=== PATIENT | male | born 1985 | race Caucasian/White ===

== ENCOUNTER 2018-11-01 06:17 | Emergency (ER) | payer BC, SELFPAY ==
[2018-11-01 06:26] VITALS: BP 151/108; PULSE 88; RESP 18; TEMP 36.9; O2SAT 96; BMI 50.1
--- NOTE | 2018-11-01 06:48 | ED_ITS ---
HPI - Back Pain/Injury General Chief Complaint: Back Pain/Injury Stated Complaint: Back Pain Time Seen by Provider: 11/01/18 06:31 Source: patient Mode of arrival: ambulatory Limitations: no limitations History of Present Illness HPI Narrative: 33-year-old male nonsmoker with history of back pain presents with a chief complaint of right lower back pain since moving a heavy refrigerator few days ago. He denies any specific trauma or direct injury to the bony spine of his back. He denies any numbness, weakness or tingling. He denies any saddle anesthesia, foot drop or trouble controlling bowel or bladder. He denies any fever or chills. His pain is worse with motion and improves with rest. MD Complaint: back pain Onset (ago): day(s) Duration: constant Similar Symptoms Previously: Yes Location: lumbar spine Severity: moderate Quality: sharp and stabbing Radiation: none Relieving factors: immobilization Exacerbating factors: movement Context: while lifting and turning/twisting Associated symptoms: denies other symptoms Treatments prior to arrival: heat therapy and NSAIDS Related Data Home Medications Medication Instructions Recorded Confirmed ibuprofen 600 mg PO PRN #0 04/17/12 Previous Rx's Medication Instructions Recorded diazepam [Valium] 10 mg PO HS #7 tab 04/04/17 hydrocodone-acetaminophen 0 tab PO Q6HP PRN #15 tab 08/13/17 ondansetron [Zofran ODT] 4 mg SUBLINGUAL Q6HP PRN #20 odt 08/13/17 diazepam [Valium] 5 mg PO BID-QID PRN #10 tab 11/01/18 hydrocodone-acetaminophen 1 tab PO Q4-6H PRN #10 tab 11/01/18 ketorolac 10 mg PO Q6H PRN #14 tab 11/01/18 Allergies Allergy/AdvReac Type Severity Reaction Status Date / Time codeine Allergy Mild RED FACE Unverified 10/13/17 12:20 Review of Systems Constitutional Denies chills, Denies fever(s), Denies lethargy and Denies weakness Eyes Denies change in vision, Denies eye discharge, Denies irritation and Denies loss of vision ENT Ears, Nose, Mouth, and Throat: Denies change in voice, Denies neck pain and Denies sore throat Cardiovascular Denies chest pain, Denies irregular heart rhythm, Denies lightheadedness, Denies palpitations, Denies dyspnea, Denies dyspnea on exertion and Denies orthopnea Respiratory Denies cough, Denies dyspnea, Denies dyspnea on exertion and Denies wheezing Gastrointestinal Gastrointestinal: Denies abdominal pain, Denies change in bowel habits, Denies diarrhea, Denies nausea and Denies vomiting Genitourinary Denies hematuria, Denies flank pain, Denies urinary incontinence and Denies urinary urgency Musculoskeletal Reports abnormal gait, Reports back pain and Denies neck pain Integumentary/Breasts Denies pruritus, Denies erythema, Denies rash and Denies wounds Neurologic Reports abnormal gait, Denies confusion, Denies loss of vision and Denies weakness Psychiatric Denies anxiety, Denies confusion, Denies depression, Denies homicidal ideation and Denies suicidal ideation Endocrine Denies palpitations Hematologic/Lymphatic Denies easy bruising Allergic/Immunologic Denies wheezing [facility] Social History Smoking Status: Never smoker Social History Smoking Status: Never smoker Exam Narrative Exam Narrative: GENERAL: 33-year-old male, obviously uncomfortable, rubbing his lower back. HEAD: Atraumatic. Normocephalic. No temporal or scalp tenderness. EYES: Pupils equal round and reactive. Extraocular motions intact. No scleral icterus. No injection or drainage. ENT: Nose without bleeding, purulent drainage or septal hematoma. Throat without erythema, tonsillar hypertrophy or exudate. Uvula midline. Airway patent. NECK: Trachea midline. No JVD or lymphadenopathy. Supple, nontender, no meningeal signs. CARDIOVASCULAR: Regular rate and rhythm without murmurs, gallops, or rubs. RESPIRATORY: Clear to auscultation. Breath sounds equal bilaterally. No wheezes, rales, or rhonchi. GASTROINTESTINAL: Abdomen soft, non-tender, nondistended. No hepato- splenomegaly, or palpable masses. No guarding. EXTREMITIES: No clubbing, cyanosis, or edema. No joint tenderness, effusion, or edema noted. 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 Patient exam notes decreased range of motion and muscle spasm, but no CVA tenderness, or vertebral point tenderness. There are no symptoms of cauda equina such as saddle anesthesia, and decreased reflexes, decreased sensation or strength. He NEURO: AOx3. SKIN: No rash or erythema. Initial Vital Signs Initial Vital Signs: Vital Signs Temperature 98.4 F 11/01/18 06:26 Pulse Rate 88 11/01/18 06:26 Respiratory Rate 18 11/01/18 06:26 Blood Pressure 151/108 H 11/01/18 06:26 Pulse Oximetry 96 11/01/18 06:26 Course Orders Ordered: Discontinued Medications Diazepam (Valium) 5 mg PO NOW ONE Stop: 11/01/18 06:40 Last Admin: 11/01/18 06:51 Dose: 5 mg Ketorolac Tromethamine (Toradol) 60 mg IM NOW ONE Stop: 11/01/18 06:40 Last Admin: 11/01/18 06:51 Dose: 60 mg Vital Signs - 8 hr 11/01/18 06:26 Temperature 98.4 F Pulse Rate 88 Respiratory Rate 18 Blood Pressure 151/108 H Pulse Oximetry 96 MDM - Back Pain/Injury MDM Narrative Medical decision making narrative: Multiple etiologies of back pain considered including; Epidural abscess, cauda equina, mass occupying lesion, and other considered Discharge Plan Departure Patient Disposition: Home Clinical Impression: Strain of lumbar region Qualifiers: Encounter type: initial encounter Qualified Code(s): S39.012A - Strain of muscle, fascia and tendon of lower back, initial encounter Discharge Date/Time: 11/01/18 08:18 Interventions: ED Discharge Assessment Last Done: 11/01/18 08:17 Instructions: DI for Back Spasm, DI for Back Strain or Sprain Activity Restrictions/Additional Instructions: *You have been diagnosed with [ acute lumbar spasm ] *What to do: *Take medications as directed *Follow up with your primary care provider in 2-3 days, call for an appointment. Let them know you were seen in the Emergency Department and that we ask that you be seen in follow up *Return to ER if you should have any new, worsening or concerning symptoms You have been prescribed narcotic medications. While on these medications you cannot drive or operate heavy machinery. Additionally you cannot sign legal documents or perform any duties such as this. Many people get constipated on narcotic medications so it would be advisable to discuss stool softeners with the pharmacist when you pickle processor your prescription. Please understand that we cannot provide further refills of narcotics or controlled substances through the ED and your pain management will need to be through your Primary Care Provider Prescriptions: New hydrocodone-acetaminophen 5-325 mg tablet 1 tab PO Q4-6H PRN (Reason: pain) Qty: 10 RF: 0 ketorolac 10 mg tablet 10 mg PO Q6H PRN (Reason: pain) Qty: 14 RF: 0 diazepam [Valium] 5 mg tablet 5 mg PO BID-QID PRN (Reason: muscle spasm) Qty: 10 RF: 0 No Action ibuprofen 600 MG tablet 600 mg PO PRN Qty: 0 RF: 0 diazepam [Valium] 10 MG tablet 10 mg PO HS Qty: 7 RF: 0 hydrocodone-acetaminophen 5 MG/325 MG tablet PO Q6HP PRNQty: 15 RF: 0 ondansetron [Zofran ODT] 4 MG tablet,disintegrating 4 mg Sublingual Q6HP PRNQty: 20 RF: 0 Stand Alone Forms: Work Release Note
[2018-11-01] MEDS: KETOROLAC 60 MG/2 ML VIAL IM (06:51)
[2018-11-01] MEDS: diazePAM 5 MG TABLET PO (06:51)
--- NOTE | 2018-11-01 07:17 | PC.NURSE ---
obtained patient care. Patient resting, reports minimal to no change in pain. Provided call light and water. Repositioned patient
[2018-11-01 08:17] VITALS: BP 138/89; PULSE 72; O2SAT 99
== END 2018-11-01 08:18 | disposition home or self-care (01) ==
PROVIDERS: Emergency Provider Emergency Medicine
DX: S39.012A Strain of muscle, fascia and tendon of lower back, initial encounter (principal)
CPT/HCPCS: 96372; 99282; 99283; J1885

== ENCOUNTER → 2018-11-09 13:37 | Outpatient (CLI) | payer BC, SELFPAY ==
--- NOTE | 2018-11-09 13:39 | DI.US.S_ITS ---
PROCEDURE: US SCROTUM INDICATIONS: TESTICULAR PAIN TECHNIQUE: Real-time scanning was performed of the scrotum and testicles, with image documentation. Color and pulse Doppler interrogation was performed of both testicles. COMPARISON: None. FINDINGS: Right: Testicle measures 5.4 x 2.7 x 2.9 cm and appears homogenous in echotexture. Epididymis is normal in overall size and morphology. No hydrocele or varicoceles. Overlying scrotal skin is normal in thickness. Left: Testicle measures 5.4 x 2.7 x 2.9 cm, and appears homogeneous in echotexture. Epididymis is normal in overall size and morphology. No hydrocele or varicoceles. Overlying scrotal skin is normal in thickness. Doppler: Color and pulse Doppler demonstrate normal and symmetric arterial flow in both testicles. IMPRESSION: 1. Normal study without evidence of testicular torsion. Dictated by: Gerald Claire M.D. on 11/09/2018 at 16:48 Approved by: Gerald Claire M.D. on 11/09/2018 at 16:54
== END ==
PROVIDERS: Visit Provider Physician Assistant
DX: N50.819 Testicular pain, unspecified (principal)
CPT/HCPCS: 76870

== ENCOUNTER → 2018-11-15 16:21 | Outpatient (CLI) | payer BC, SELFPAY ==
[2018-11-15 16:27] LABS: Bacteria Urine None Seen
[2018-11-15 16:34] LABS: Appearance Urine UA CLEAR; Bilirubin Urine UA NEGATIVE (NEGATIVE); Color Urine UA YELLOW; Glucose Urine UA NEGATIVE (Negative); Ketones Urine UA NEGATIVE (NEGATIVE); Leukocyte Esterase Urine UA NEGATIVE (NEGATIVE); Nitrite Urine UA NEGATIVE (Negative); Occult Blood Urine UA TRACE-LYSED (Negative); Protein Urine UA NEGATIVE (Negative); Specific Gravity Urine UA 1.025 (1.000-1.035); Urobilinogen Urine UA 0.2 E.U./dL (0.2)
[2018-11-15 16:45] LABS: RBC Urine 1-5/HPF (0-5/HPF); WBC Urine 0-1/HPF (0-5/HPF)
[2018-11-15 16:46] LABS: Granular Casts Urine 5-10/LPF; Squamous Epithelial Cell Urine 0-1 /HPF (0-5/HPF)
[2018-11-15 16:47] LABS: Culture Indicated Urine Cult Not Indicated; Mucus Urine 2+ (Negative)
[2018-11-15 18:04] LABS: Urine N gonorrhoeae NOT DETECTED
[2018-11-15 18:05] LABS: Urine Chlamydia NOT DETECTED
== END ==
PROVIDERS: Visit Provider Physician Assistant
DX: N50.819 Testicular pain, unspecified (principal)
CPT/HCPCS: 81001; 87491; 87591

== ENCOUNTER 2019-04-01 17:25 | Emergency (ER) | payer BC, SELFPAY ==
[2019-04-01 17:30] VITALS: BP 148/96; PULSE 89; RESP 18; TEMP 36.2; O2SAT 96
--- NOTE | 2019-04-01 17:38 | PC.NURSE ---
Pt is not taking lisinopril, states he is having difficulty finding time to go to provider. Discussed htn as well as effects of untreated htn. encouraged to f/u w/ his PCP to start taking meds again. Reviewed s/s to return to ED re: htn crisis w/ verbalized understanding.
[2019-04-01 18:33] VITALS: BP 149/88; PULSE 70; RESP 18; O2SAT 99
--- NOTE | 2019-04-02 02:03 | ED_ITS ---
HPI - Skin/Abscess/Foreign Bdy <GAUDENCIO Jeffrey - Last Filed: 04/02/19 02:18> General Chief complaint: Skin/Abscess/Foreign Body Stated complaint: burn left forearm, thinks becoming infected Time Seen by Provider: 04/01/19 18:00 Source: patient Mode of arrival: Ambulatory Limitations: no limitations History of Present Illness HPI narrative: This is a pleasant 33-year-old gentleman, uses chewing tobacco, who presents to ED alone with chief complaint of left medial lower arm burn and possible skin infection. Patient reports he had burn on affected side on a hot pipe 2 days ago. He has been managing wound care with Neosporin on and off after initially using burn cream. He denies fever, chills, nausea, vomiting or drainage from the site. He is concerned and decided to come in to ED for an evaluation because noticed increasing redness, swelling, pain surrounding burn site. Patient reports his tetanus immunization is up-to-date. Related Data Previous Rx's Medication Instructions Recorded lisinopril 5 mg tablet 5 mg PO DAILY #30 tab 11/17/18 cephalexin [Keflex] 500 mg PO Q6H 7 Days #28 cap 04/01/19 Allergies Allergy/AdvReac Type Severity Reaction Status Date / Time codeine Allergy Mild RED FACE Verified 04/01/19 17:34 Review of Systems <GAUDENCIO Jeffrey - Last Filed: 04/02/19 02:18> Review of Systems ROS Unobtainable: All systems reviewed & are unremarkable except as noted in HPI and below PFSH <GAUDENCIO Jeffrey - Last Filed: 04/02/19 02:18> Surgical History No pertinent past surgical history (Acute) Family History Mother Depression Social History Smoking Status: Former smoker Family History Mother Depression Social History (Updated 04/02/19 @ 02:06 by GAUDENCIO Jeffrey) Smoking Status: Former smoker Smokeless tobacco user: chewing tobacco Exam <Gigi DiazASCENCION boyerP - Last Filed: 04/02/19 02:18> Narrative Exam Narrative: General appearance: well developed, well nourished, in no acute distress. Head: normocephalic, atraumatic, no scalp lesions, non-tender. Eye: pupil equal, round. EOMI. Nose: nares patent. Oral: mucosa moist. Neck/Thyroid: neck supple, full range of motion, no visible masses. Heart: no clubbing, no cyanosis, no edema. Lungs: Breathing even and unlabored. No stridor. No accessory muscles used. Chest: normal shape and expansion. Abdomen: non-obese, non-distended. Neurologic: alert and oriented. Cognitive exam, [employer] SERVICE [employer] IN [employer] and PNS grossly intact on informal exam. Psych: good eye contact, normal affect. Initial Vital Signs Initial Vital Signs: Vital Signs Temperature 97.2 F L 04/01/19 17:30 Pulse Rate 89 04/01/19 17:30 Respiratory Rate 18 04/01/19 17:30 Blood Pressure 148/96 H 04/01/19 17:30 Pulse Oximetry 96 04/01/19 17:30 Skin Other: Superficial partial thickness burn to medial left forearm approx. 1.5 x 2-3 cm with mild erythema and edema, mild warmth on surrounding tissue. There is no drainage noted. Affected mart side appears to be dried with this serous fluid and light yellow in color. <Hien Erickson DO - Last Filed: 04/02/19 08:46> Initial Vital Signs Initial Vital Signs: Vital Signs Temperature 97.2 F L 04/01/19 17:30 Pulse Rate 89 04/01/19 17:30 Respiratory Rate 18 04/01/19 17:30 Blood Pressure 148/96 H 04/01/19 17:30 Pulse Oximetry 96 04/01/19 17:30 Scores <Gigi CoatesCarmenGAUDENCIO boyer - Last Filed: 04/02/19 02:18> GCS [place] coma scale eye opening: Spontaneous Gabriela coma scale verbal response: Orientated Gabriela coma scale motor response: Obey commands [place] coma scale total score: 15 Course <Gigi CoatesASCENCION TaylorP - Last Filed: 04/02/19 02:18> Vital Signs Vital signs: Vital Signs - 8 hr 04/01/19 18:33 Pulse Rate 70 Respiratory Rate 18 Blood Pressure [Left Arm] 149/88 H Pulse Oximetry 99 <Hien Erickson DO - Last Filed: 04/02/19 08:46> Vital Signs Vital signs: Vital Signs - 8 hr 04/01/19 18:33 Pulse Rate 70 Respiratory Rate 18 Blood Pressure [Left Arm] 149/88 H Pulse Oximetry 99 MDM - Skin/Abscess/Foreign Bdy <ASCENCION JeffreyP - Last Filed: 04/02/19 02:18> Differential Diagnosis Differential diagnosis: Likely cellulitis (Superficial partial-thickness burn on left lower arm) Medical Records Attestation: I reviewed the patient's medical records. [facility] Narrative Medical decision making narrative: This is a 33-year-old gentleman who came in to ED for an evaluation for superficial partial-thickness burn on his left lower arm which he sustained from a hot pipe 2 days ago with increasing redness, warmth, swelling in surrounding skin. Patient denies constitutional symptoms. Surrounding wound was marked with skin marker for re-evaluation. Physical exam consistent with mild cellulitis and he was treated with Keflex 500 mg q.i.d. for 7 day course. Return precautions were discussed with the patient and advised to follow up with his primary care physician next week. Patient advised to keep the wound clean and dry and covered with Neosporin and dressing. Patient verbalized understanding and agrees with treatment plan. Patient advised to take [id number] Tylenol or Motrin as needed for discomfort. Patient reports his tetanus immunization is up-to-date and the nose has not updated today. Discharge Plan Departure Patient Disposition: Home Clinical Impression: Cellulitis of left forearm Discharge Date/Time: 04/01/19 18:33 Activity Restrictions/Additional Instructions: You have been diagnosed with [mild cellulitis on burned site of year left forearm]. What to do: *Take your medications as directed. Please start taking Keflex today and for next 7 days. If you're wound clean and dry and dressed with antibiotic ointment and Band-Aid. Please do not soak the wound in water until it heals. *Follow up with your primary care provider in 2-3 days, call for an appointment. Let them know you were seen in the ED and that we asked you to be seen in follow up. *Return to ED if you have any new, worsening, or concerning symptoms, such as [increasing redness, swelling, pain, warmth, purulent discharge, unable to tolerate fluids, chest pain or breathing difficulty]. Prescriptions: New cephalexin [Keflex] 500 mg capsule 500 mg PO Q6H 7 Days Qty: 28 RF: 0 No Action lisinopril 5 mg tablet 5 mg PO DAILY Qty: 30 RF: 0 Referrals: [facility] [Outside] (Walk in clinic ) [facility] [Outside]
== END 2019-04-01 18:33 | disposition home or self-care (01) ==
PROVIDERS: Emergency Provider Nurse Practitioner Family
DX: L03.114 Cellulitis of left upper limb (principal)
CPT/HCPCS: 99282; 99283

== ENCOUNTER → 2019-05-10 17:33 | Outpatient (CLI) | payer BC, SELFPAY ==
[2019-05-10 18:27] LABS: Alanine Aminotransferase 149 IU/L (<50); Albumin 5.4 g/dL (3.5-5.0); Albumin Globulin Ratio 1.7 (1.0-2.8); Alkaline Phosphatase 76 U/L (38-126); Aspartate Aminotransferase 64 IU/L (17-59); Bilirubin Total 0.6 mg/dL (0.2-1.3); Blood Urea Nitrogen 12 mg/dL (9-20); Calcium 10.4 mg/dL (8.4-10.2); Carbon Dioxide 25 mmol/L (22-32); Chloride 99 mmol/L (98-107); Cholesterol 254 mg/dL (140-199); Estimated Glomerular Filt Rate > 60.0 mL/min (>60); Globulin 3.1 g/dL (1.7-4.1); Glucose 90 mg/dL (70-100); HDL Cholesterol 32 mg/dL (40-60); HEMOLYSIS 20 (0-50); LDL Cholesterol Calculated 155 mg/dL (<100); Potassium 4.1 mmol/L (3.4-5.1); Sodium 137 mmol/L (137-145); Total Protein 8.5 g/dL (6.3-8.2); Triglycerides 335 mg/dL (35-150)
== END ==
PROVIDERS: Visit Provider Hospitalist
DX: I10 Essential (primary) hypertension (principal)
CPT/HCPCS: 36415; 80053; 80061

== ENCOUNTER → 2019-06-19 17:27 | Outpatient (CLI) | payer BC, SELFPAY ==
[2019-06-19 19:00] LABS: Creatinine Urine Random 69.1 mg/dL
[2019-06-19 19:01] LABS: Alanine Aminotransferase 73 IU/L (<50); Albumin 5.2 g/dL (3.5-5.0); Albumin Globulin Ratio 1.6 (1.0-2.8); Alkaline Phosphatase 75 U/L (38-126); Aspartate Aminotransferase 41 IU/L (17-59); Bilirubin Total 0.6 mg/dL (0.2-1.3); Blood Urea Nitrogen 16 mg/dL (9-20); Calcium 10.2 mg/dL (8.4-10.2); Carbon Dioxide 27 mmol/L (22-32); Chloride 97 mmol/L (98-107); Cholesterol 226 mg/dL (140-199); Estimated Glomerular Filt Rate > 60.0 mL/min (>60); Globulin 3.2 g/dL (1.7-4.1); Glucose 86 mg/dL (70-100); HDL Cholesterol 26 mg/dL (40-60); HEMOLYSIS < 15 (0-50); Potassium 4.1 mmol/L (3.4-5.1); Sodium 138 mmol/L (137-145); Total Protein 8.4 g/dL (6.3-8.2); Triglycerides 444 mg/dL (35-150)
[2019-06-19 19:06] LABS: Microalbumi Creatinin Ratio Ur 8.6 ug/mg CR (<30); Microalbumin Urine Random < 0.6 mg/dL (0-1.6)
== END ==
PROVIDERS: Family Provider Family Medicine; PCP Family Medicine; Visit Provider Nurse Practitioner Family
DX: E78.2 Mixed hyperlipidemia (principal); I10 Essential (primary) hypertension; R74.8 Abnormal levels of other serum enzymes
CPT/HCPCS: 36415; 80053; 80061; 82043; 82570

== ENCOUNTER 2024-01-14 11:21 | Emergency (ER) | payer BC, SELFPAY ==
[2024-01-14 13:08] VITALS: BP 152/83; PULSE 73; RESP 16; TEMP 36.7; O2SAT 96; BMI 33.6
--- NOTE | 2024-01-14 13:17 | DI.RAD.S_ITS ---
PROCEDURE: XR LUMBAR SPINE 2-3V INDICATIONS: back pain TECHNIQUE: 3 views of the lumbar spine were acquired. COMPARISON: [facility], , -SPINE 2-3 VIEWS, 04/04/2017, 18:52. FINDINGS: Bones: 5 [id number] vertebrae are present. There is normal bony alignment. No vertebral body compression fractures. No suspicious bony lesions. Soft tissues: Overlying bowel gas pattern is normal. No suspicious soft tissue calcifications. IMPRESSION: No acute bony abnormality. Dictated by: Jatin Ruggiero M.D. on 01/14/2024 at 13:54 Approved by: Jatin Ruggiero M.D. on 01/14/2024 at 13:54
--- NOTE | 2024-01-14 13:25 | ED_ITS ---
HPI - Back Pain/Injury <GAUDENCIO King - Last Filed: 01/14/24 14:45> General Chief Complaint: Back Pain/Injury Stated Complaint: Hurt Lower back Time Seen by Provider: 01/14/24 13:25 Source: patient History of Present Illness HPI Narrative: 38-year-old male, former smoker, presents to the emergency department with worsening low back pain. 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 As patient was working on his cabinets, noticed a sharp pain down his right lower back down to his knee. Home treatment included 600 mg of ibuprofen today. Patient does report a history a bulging disc on left side. Patient denies any signs of saddle anesthesia that include loss of control of bowel or bladder or numbness and tingling of lower legs. Related Data Home Medications Medication Instructions Recorded Confirmed disulfiram 250 mg tablet (Antabuse) 125 mg PO .QOD 05/19/19 05/19/19 Previous Rx's Medication Instructions Recorded lisinopril 5 mg tablet 5 mg PO DAILY #90 tabs 05/19/19 methylprednisolone 4 mg tablets in See Rx Instructions PO .COMPLEX 01/14/24 a dose pack (Medrol (Nicholas)) #21 ea oxycodone-acetaminophen 7.5 mg-325 1 tab PO Q4-6H PRN pain #10 tabs 01/14/24 mg tablet (Percocet) Allergies Allergy/AdvReac Type Severity Reaction Status Date / Time codeine Allergy Mild RED FACE Verified 05/19/19 16:40 Review of Systems <GAUDENCIO King - Last Filed: 01/14/24 14:45> Review of Systems Narrative: Narrative: See HPI. GENERAL: Denies chills, fatigue, fever, sweats. HEENT: Denies sinus pain, ear pain, sore throat, difficulty swallowing, dizziness. RESPIRATORY: Denies dyspnea, cough, wheezing, sputum. CARDIOVASCULAR: Denies chest pain, palpitations, edema. GASTROINTESTINAL: Denies nausea, vomiting, abdominal pain, diarrhea, constipation. : Denies dysuria, frequency, incontinence, hematuria, urinary retention, flank pain. MSK: Denies weakness. Endorses right-sided low back pain. SKIN: Denies rash, skin lesions, or pruritis. NEUROLOGIC: Denies weakness, dizziness, headache, numbness, confusion. PSYCHIATRIC: No concerning psychosocial issues. Patient History <GAUDENCIO King - Last Filed: 01/14/24 14:45> Medical History BMI 36.0-36.9,adult Elevated liver enzymes (05/2019) Mixed hyperlipidemia (05/2019) Surgical History No pertinent past surgical history Family History Mother Depression Social History Smoking Status: Former smoker Smokeless tobacco user: chewing tobacco Smoking Status: Former smoker tobacco type: smokeless tobacco alcohol intake frequency: other Substance Use Type: does not use Exam <GAUDENCIO King - Last Filed: 01/14/24 14:45> Narrative Exam Narrative: Exam Narrative: GENERAL: This is a well-nourished, well-developed patient, in no acute distress. HEAD: Atraumatic. Normocephalic. EYES: Pupils equal round and reactive. Extraocular motions intact. No scleral icterus, injection or drainage. ENT: Nose without bleeding, purulent drainage. Throat without erythema, tonsillar hypertrophy or exudate. Uvula midline. Airway patent. TMs and canals clear. No sinus tenderness. NECK: Trachea midline. No JVD or lymphadenopathy. Nontender. CARDIOVASCULAR: Regular rate and rhythm without murmurs, peripheral pulses intact, cap refill <2 sec. RESPIRATORY: Breath sounds equal and clear bilaterally. No wheezes, rales, or rhonchi. No cough. No increased respiratory effort. No accessory muscle use. GASTROINTESTINAL: Abdomen soft, non-tender, nondistended without guarding or rebound. No suprapubic pain. MSK: Moves all extremities. Normal range of motion, no clubbing or edema. Neurovascularly intact. NEURO: A&O x 3. SKIN: Warm, dry, no rashes or lesions noted. BACK steam bone press tender but free of any obvious external abnormalities. There is no asymmetry, swelling, bruising or wound. There is no paraspinal tenderness or CVA tenderness. SI joints nontender. No pain over spinous processes. No symptoms of cauda equina such as saddle anesthesia. Sensation is grossly intact. ROM is limited due to pain. SLE is negative bilaterally. Reflexes 2-3 at patella and achilles bilaterally. Resistive strengths are within normal limits Gait is antalgic. Initial Vital Signs Initial Vital Signs: Vital Signs Temperature 98.0 F 01/14/24 13:08 Pulse Rate 73 01/14/24 13:08 Respiratory Rate 16 01/14/24 13:08 Blood Pressure 152/83 H 01/14/24 13:08 Pulse Oximetry 96 01/14/24 13:08 Oxygen Delivery Method Room Air 01/14/24 13:08 Reviewed <Hien Erickson DO - Last Filed: 01/23/24 07:49> Initial Vital Signs Initial Vital Signs: Vital Signs Temperature 98.0 F 01/14/24 13:08 Pulse Rate 73 01/14/24 13:08 Respiratory Rate 16 01/14/24 13:08 Blood Pressure 152/83 H 01/14/24 13:08 Pulse Oximetry 96 01/14/24 13:08 Oxygen Delivery Method Room Air 01/14/24 13:08 Course <GAUDENCIO King - Last Filed: 01/14/24 14:45> Orders Ordered: Discontinued Medications Ketorolac Tromethamine (Ketorolac 30 Mg/Ml Vial) 30 mg IM NOW ONE Stop: 01/14/24 13:35 Last Admin: 01/14/24 14:44 Dose: 30 mg Documented By: SB Vital Signs Vital signs: Vital Signs - 8 hr 01/14/24 13:08 Temperature 98.0 F Pulse Rate 73 Respiratory Rate 16 Blood Pressure 152/83 H Pulse Oximetry 96 Oxygen Delivery Method Room Air <Hien Erickson DO - Last Filed: 01/23/24 07:49> Orders Ordered: Discontinued Medications Ketorolac Tromethamine (Ketorolac 30 Mg/Ml Vial) 30 mg IM NOW ONE Stop: 01/14/24 13:35 Last Admin: 01/14/24 14:44 Dose: 30 mg Documented By: SB Vital Signs Vital signs: Vital Signs - 8 hr 01/14/24 13:08 Temperature 98.0 F Pulse Rate 73 Respiratory Rate 16 Blood Pressure 152/83 H Pulse Oximetry 96 Oxygen Delivery Method Room Air MDM - Back Pain/Injury <GAUDENCIO King - Last Filed: 01/14/24 14:45> Differential Diagnosis Differential diagnosis: Likely lumbar radiculopathy and strain of lumbar region Imaging Data Extremity x-ray #1: Radiologist's Impression: [address] [address] XRay Report Signed Patient: Vishnu Adorno MR#: [id number] : 1985 Acct:[id number] Age/Sex: 38 / M Date of Service: 01/14/24 Loc: ED Accession Number: [id number] Procedure: XR lumbar spine 2-3V Ordering Provider: Chaitanya Alanis PROCEDURE: XR LUMBAR SPINE 2-3V INDICATIONS: back pain TECHNIQUE: 3 views of the lumbar spine were acquired. COMPARISON: [facility], [place], L-SPINE 2-3 VIEWS, 04/04/2017, 18:52. FINDINGS: Bones: 5 [id number] vertebrae are present. There is normal bony alignment. No vertebral body compression fractures. No suspicious bony lesions. Soft tissues: Overlying bowel gas pattern is normal. No suspicious soft tissue calcifications. IMPRESSION: No acute bony abnormality. Dictated by: Jatin Ruggiero M.D. on 01/14/2024 at 13:54 Approved by: Jatin Ruggiero M.D. on 01/14/2024 at 13:54 [facility] Narrative Medical decision making narrative: 38-year-old male with low back pain. Assessment was encouraging and no red flag symptoms such as saddle anesthesia noticed. X-ray was normal. Assessment was consistent with a low back strain. Toradol injection provided. Will discharge patient home with instructions to begin ibuprofen 600 mg 3 times a day for the next 3 days, Medrol Dosepak as prescribed, Percocet as needed for breakthrough pain. Discussed plan of care and worsening symptoms that would necessitate a return visit to the emergency department. Otherwise, patient will follow up with family doctor as needed. Consideration included that injury was non-traumatic, patient is not a IV drug user, no fever, neurovascular intact, no weakness, no signs of epidural abscess or saddle anesthesia. Discharge Plan Departure Patient Disposition: Home Clinical Impression: Strain of lumbar region Qualifiers: Encounter type: initial encounter Qualified Code(s): S39.012A - Strain of muscle, fascia and tendon of lower back, initial encounter Instructions: DI for Back Strain or Sprain Activity Restrictions/Additional Instructions: *You have been diagnosed with a low back strain. My assessment was encouraging and no red flag symptoms noted. Your x-ray was normal no obvious deformity or fractures noted. We have given you a injection of Toradol, and therefore should not take anymore ibuprofen today. Beginning tomorrow, you should begin taking ibuprofen 600-800 mg 3 times a day with food for at least the next 3 days. Additionally, we are giving you a steroid to take as directed over the next several days. Will give you a short course of pain medication for breakthrough pain only. For any worsening symptoms that include loss of control of bowel or bladder, numbness or tingling of legs and inability to stand, please return to the emergency room immediately. Otherwise, please follow-up with your family doctor as needed. *What to do: *Please continue to take your regular medications as directed. [x ] New medication prescriptions sent to your pharmacy: [[facility]] [ ] New medication written as a paper prescription [ ] No new medications given *Please follow up with your primary care provider in 2-3 days, call for an appointment. Let them know you were seen in the Emergency Department and that we ask that you be seen in follow up. We will electronically transmit a record of today's note if your PCP is in our system *If you do not have a primary care provider please contact the [facility] Resource line at [phone]. They will ask some questions about your medical history and help get you set up with a doctor in the community. ? Return to ER if you should have any new, worsening or concerning symptoms, such as worsening pain, severe headache, confusion, chest pain, difficulty breathing, fever greater than 101 F, shaking chills, persistent vomiting to the point that you cannot drink fluids, or other new or worsening symptoms. Prescriptions: New methylprednisolone [Medrol (Nicholas)] 4 mg tablets,dose pack See Rx Instructions .ROUTE .COMPLEX Qty: 21 0RF Rx Instructions: orally per package directions oxycodone-acetaminophen [Percocet] 7.5-325 mg tablet 1 tab PO Q4-6H PRN (Reason: pain) Qty: 10 0RF No Action lisinopril 5 mg tablet 5 mg PO DAILY Qty: 90 1RF disulfiram [Antabuse] 250 mg tablet 125 mg PO .QOD Referrals: He Andersen DO [Primary Care Provider] - Stand Alone Forms: Patient Portal/API, Work Release Note ED Sign-out <Hien Erickson DO - Last Filed: 01/23/24 07:49> Cosign ED Attending Cosignature Attestation: I was available for consultation.
[2024-01-14] MEDS: KETOROLAC 30 MG/ML VIAL IM (14:44)
[2024-01-14 15:04] VITALS: BP 149/79; PULSE 73; RESP 20; O2SAT 99
== END 2024-01-14 15:06 | disposition home or self-care (01) ==
PROVIDERS: Emergency Provider Registered Nurse; Family Provider Family Medicine; PCP Family Medicine
DX: S39.012A Strain of muscle, fascia and tendon of lower back, initial encounter (principal); X50.0XXA Overexertion from strenuous movement or load, initial encounter
CPT/HCPCS: 72100; 96372; 99283; J1885

== ENCOUNTER → 2024-06-14 08:59 | Outpatient (CLI) | payer OTHER, SELFPAY ==
[2024-06-14 10:16] LABS: Add Manual Diff / Slide Review NO; Basophils Absolute Auto 100 /uL (0-100); Basophils Percent Auto 0.5 % (0-2); Eosinophils Absolute Auto 200 /uL (0-450); Eosinophils Percent Auto 1.9 % (2-4); Hematocrit 47.4 % (41-53); Hemoglobin 16.6 g/dL (13.5-17.5); Lymphocytes Absolute Auto 2100 /uL (1100-4500); Lymphocytes Percent Auto 18.1 % (25-40); Mean Corpuscular Hemoglobin 32.1 PG (26-34); Mean Corpuscular Volume 91.9 fL (80-100); Monocytes Absolute Auto 1000 /uL (0-900); Monocytes Percent Auto 8.6 % (3-14); Neutrophils Absolute Auto 8100 /uL (1500-7000); Neutrophils Percent Auto 70.9 % (50-75); Platelet Count 279 X10^3/uL (150-400); Red Blood Cell Count 5.16 X10^6/uL (4.5-5.9); White Blood Cell Count 11.4 X10^3/uL (4.5-11.0)
[2024-06-14 10:48] LABS: Lithium 0.3 mmol/L (0.6-1.2)
[2024-06-14 10:51] LABS: Alanine Aminotransferase 30 IU/L (<50); Albumin 4.8 g/dL (3.5-5.0); Albumin Globulin Ratio 1.7 (1.0-2.8); Alkaline Phosphatase 51 U/L (38-126); Aspartate Aminotransferase 34 IU/L (17-59); BUN Creatinine Ratio 12.2 (6-22); Bilirubin Total 0.6 mg/dL (0.2-1.3); Blood Urea Nitrogen 18 mg/dL (9-20); Calcium 9.8 mg/dL (8.4-10.2); Carbon Dioxide 30 mmol/L (22-32); Chloride 98 mmol/L (98-107); Cholesterol 235 mg/dL (140-199); Estimated Glomerular Filt Rate > 60 mL/min (>60); Globulin 2.9 g/dL (1.7-4.1); Glucose 95 mg/dL (70-100); HDL Cholesterol 27 mg/dL (40-60); HEMOLYSIS < 15 (0-50); LDL Cholesterol Calculated 131 mg/dL (<100); Potassium 4.2 mmol/L (3.4-5.1); Sodium 136 mmol/L (137-145); Total Protein 7.7 g/dL (6.3-8.2); Triglycerides 385 mg/dL (35-150)
[2024-06-14 11:18] LABS: Hemoglobin A1C% w Est Avg Glu 4.9 % (4.0-6.0)
[2024-06-14 11:20] LABS: TSH w/ Reflex to FT4 2.56 uIU/mL (0.47-4.68)
== END ==
PROVIDERS: Family Provider Family Medicine; PCP Family Medicine; Referring Provider Family Medicine; Visit Provider Family Medicine
DX: R74.8 Abnormal levels of other serum enzymes (principal); Z79.899 Other long term (current) drug therapy; Z92.241 Personal history of systemic steroid therapy; E78.2 Mixed hyperlipidemia; Z68.35 Body mass index [BMI] 35.0-35.9, adult; F41.1 Generalized anxiety disorder; F17.200 Nicotine dependence, unspecified, uncomplicated; F43.10 Post-traumatic stress disorder, unspecified; F11.91 Opioid use, unspecified, in remission; F15.21 Other stimulant dependence, in remission; F10.91 Alcohol use, unspecified, in remission; F31.81 Bipolar II disorder; Z13.1 Encounter for screening for diabetes mellitus
CPT/HCPCS: 36415; 80053; 80061; 80178; 83036; 84443; 85025

== ENCOUNTER 2024-10-18 22:38 | Emergency (ER) | payer BC, OTHER, SELFPAY ==
[2024-10-18 23:01] VITALS: BP 147/87; PULSE 97; RESP 18; TEMP 36.6; O2SAT 98; BMI 34.9
[2024-10-18 23:49] LABS: Add Manual Diff / Slide Review NO; Basophils Absolute Auto 100 /uL (0-100); Basophils Percent Auto 0.5 % (0-2); Eosinophils Absolute Auto 100 /uL (0-450); Eosinophils Percent Auto 0.8 % (2-4); Hematocrit 51.1 % (41-53); Hemoglobin 17.6 g/dL (13.5-17.5); Lymphocytes Absolute Auto 3300 /uL (1100-4500); Lymphocytes Percent Auto 31.3 % (25-40); Mean Corpuscular HGB Conc 34.5 % (30-36); Mean Corpuscular Hemoglobin 31.8 PG (26-34); Mean Corpuscular Volume 92.1 fL (80-100); Monocytes Absolute Auto 1000 /uL (0-900); Monocytes Percent Auto 9.5 % (3-14); Neutrophils Absolute Auto 6200 /uL (1500-7000); Neutrophils Percent Auto 57.9 % (50-75); Platelet Count 288 X10^3/uL (150-400); Red Blood Cell Count 5.55 X10^6/uL (4.5-5.9); Red Cell Distribution Width 14.4 % (11.6-14.8); White Blood Cell Count 10.6 X10^3/uL (4.5-11.0)
[2024-10-18 23:57] LABS: Acetaminophen < 10 ug/mL (10-30); Salicylate < 1.0 mg/dL (<20)
[2024-10-18 23:58] LABS: Alanine Aminotransferase 62 IU/L (<50); Albumin 5.2 g/dL (3.5-5.0); Albumin Globulin Ratio 1.3 (1.0-2.8); Alkaline Phosphatase 81 U/L (38-126); Aspartate Aminotransferase 63 IU/L (17-59); BUN Creatinine Ratio 15.3 (6-22); Bilirubin Total 0.6 mg/dL (0.2-1.3); Blood Urea Nitrogen 22 mg/dL (9-20); Calcium 9.6 mg/dL (8.4-10.2); Carbon Dioxide 20 mmol/L (22-32); Chloride 102 mmol/L (98-107); Estimated Glomerular Filt Rate > 60 mL/min (>60); Glucose 105 mg/dL (70-100); HEMOLYSIS 24 (0-50); Potassium 4.1 mmol/L (3.4-5.1); Sodium 140 mmol/L (137-145); Total Protein 9.2 g/dL (6.3-8.2)
[2024-10-19 00:05] LABS: Ur Creatinine Normal (Normal); Ur Specific Gravity Normal (Normal); Urine Amphetamines Negative (Negative); Urine Barbiturates Negative (Negative); Urine Benzodiazepines Negative (Negative); Urine Cocaine Negative (Negative); Urine MDMA Negative (Negative); Urine Methadone Negative (Negative); Urine Methamphetamines Negative (Negative); Urine Opiates Negative (Negative); Urine Oxycodone Negative (Negative); Urine Phencyclidine Negative (Negative); Urine THC Negative (Negative); Urine Tricyclic Antidepressant Negative (Negative); Urine pH Normal (Normal)
[2024-10-19 00:05] LABS: Ethanol (ETOH) 320 mg/dL
--- NOTE | 2024-10-19 00:07 | ED_ITS ---
HPI - Alcohol General Chief Complaint: Toxicology Problem Stated Complaint: having bipolar episodes Time Seen by Provider: 10/18/24 23:14 Source: patient Mode of arrival: Ambulatory History of Present Illness HPI narrative: Patient is a 39-year-old male history of bipolar alcoholism presenting coude with depression suicidal ideations. Reports that he lost his job for about 2 months ago due to drinking. He has been trying to find another job unable to do so. Thoughts of hurting himself tonight but no specific plan. Reports that he was at inpatient dual treatment therapy in April at which point he was diagnosed with bipolar and placed on lithium. He does not feel like that is the right diagnosis. He was 3 kids, they just bought a house stress is currently overwhelming. Reports that he had drank tonight very tearful wants to get some help Related Data Home Medications Medication Instructions Recorded Confirmed lithium carbonate 600 mg capsule 600 mg PO BEDTIME 05/26/24 10/18/24 naltrexone 50 mg tablet 50 mg PO DAILY 05/26/24 10/18/24 propranolol 20 mg tablet 20 mg PO BID 05/26/24 10/18/24 lamotrigine 100 mg tablet 100 mg PO DAILY 08/24/24 10/18/24 quetiapine 300 mg tablet 300 mg PO DAILY 10/18/24 10/18/24 Previous Rx's Medication Instructions Recorded ezetimibe 10 mg tablet 10 mg PO DAILY #30 tabs 06/21/24 Allergies Allergy/AdvReac Type Severity Reaction Status Date / Time quetiapine AdvReac Severe groggy Verified 08/24/24 09:51 Patient History Medical History (Updated 10/19/24 @ 01:26 by Hien Erickson DO) Flank pain, acute Low back pain BMI 36.0-36.9,adult Elevated liver enzymes (05/2019) Mixed hyperlipidemia (05/2019) Surgical History No pertinent past surgical history Family History Mother Depression Social History Smoking Status: Current every day smoker Smokeless tobacco user: chewing tobacco Smoking Status: Current every day smoker tobacco type: vaping and smokeless tobacco alcohol intake frequency: other Alcohol type: hard liquor Exam Initial Vital Signs Initial Vital Signs: Vital Signs Temperature 97.8 F 10/18/24 23:01 Pulse Rate 97 H 10/18/24 23:01 Respiratory Rate 18 10/18/24 23:01 Blood Pressure 147/87 H 10/18/24 23:01 Pulse Oximetry 98 10/18/24 23:01 Oxygen Delivery Method Room Air 10/18/24 23:01 GENERAL: Alert tearful 31-year-old male alcohol on breath and in [no acute] distress. HEENT: Head atraumatic,EOMI, pupils reactive, face symmetric, [moist] mucous membranes CARDIOVASCULAR: Regular rate and rhythm without murmurs, rubs or gallops. RESPIRATORY: Breath sounds equal bilaterally, no wheezes rales or rhonchi. ABDOMEN: Soft, nontender. Normoactive bowel sounds all 4 quadrants. No guarding or rebound. EXTREMITIES: Normal range of motion, no clubbing or edema. Neurovascularly intact NEUROLOGICAL: Alert and oriented x4.Normal gait and speech. Cranial nerves II through XII grossly intact. SKIN: Warm, dry, no laceration, no petechiae, no rashes or lesions. Course Orders Ordered: ED Orders 10/18/24 23:30 Acetaminophen Stat Complete Blood Count AUTO DIFF Stat Comprehensive Metabolic Panel Stat Ethanol (ETOH) Stat Salicylate Stat TSH w/ Reflex to FT4 Stat 10/18/24 23:48 Urine Drug Screen, Rapid Stat 10/19/24 00:10 [place] Stat Discontinued Medications Lorazepam (Lorazepam 0.5 Mg Tablet) 2 mg PO NOW ONE Stop: 10/19/24 00:10 Last Admin: 10/19/24 00:14 Dose: 2 mg Documented By: MR Vital Signs Vital signs: Vital Signs - 8 hr 10/18/24 23:01 10/19/24 01:24 Temperature 97.8 F Pulse Rate 97 H 89 Respiratory Rate 18 Blood Pressure 147/87 H 134/95 H Pulse Oximetry 98 98 Oxygen Delivery Method Room Air MDM - Alcohol Lab Data 10/18/24 23:30 10/18/24 23:30 Labs: Lab Results 10/18/24 10/18/24 Range/Units 23:30 23:48 WBC 10.6 (4.5-11.0) X10^3/uL RBC 5.55 (4.5-5.9) X10^6/uL Hgb 17.6 H (13.5-17.5) g/dL Hct 51.1 (41-53) % MCV 92.1 (80-100) fL MCH 31.8 (26-34) PG MCHC 34.5 (30-36) % RDW 14.4 (11.6-14.8) % Plt Count 288 (150-400) X10^3/uL Neut % (Auto) 57.9 (50-75) % Lymph % (Auto) 31.3 (25-40) % [place] % (Auto) 9.5 (3-14) % Eos % (Auto) 0.8 L (2-4) % Baso % (Auto) 0.5 (0-2) % Neut # (Auto) 6200 (5496-2613) /uL Lymph # (Auto) 3300 (5452-7773) /uL [place] # (Auto) 1000 H (0-900) /uL Eos # (Auto) 100 (0-450) /uL Baso # (Auto) 100 (0-100) /uL Sodium 140 (137-145) mmol/L Potassium 4.1 (3.4-5.1) mmol/L Chloride 102 (98-107) mmol/L Carbon Dioxide 20 L (22-32) mmol/L BUN 22 H (9-20) mg/dL Creatinine 1.44 H (0.66-1.25) mg/dL Estimated GFR > 60 (>60) mL/min BUN/Creatinine Ratio 15.3 (6-22) Glucose 105 H (70-100) mg/dL Calcium 9.6 (8.4-10.2) mg/dL Total Bilirubin 0.6 (0.2-1.3) mg/dL AST 63 H (17-59) IU/L ALT 62 H (<50) IU/L Alkaline Phosphatase 81 (38-126) U/L Total Protein 9.2 H (6.3-8.2) g/dL Albumin 5.2 H (3.5-5.0) g/dL Globulin 4.0 (1.7-4.1) g/dL Albumin/Globulin Ratio 1.3 (1.0-2.8) TSH 2.41 (0.47-4.68) uIU/mL Salicylates < 1.0 (<20) mg/dL U Opiates 300ng/mL cut Negative (Negative) Ur Oxycodone Screen Negative (Negative) Urine Methadone Screen Negative (Negative) Acetaminophen < 10 (10-30) ug/mL Ur Barbiturates Screen Negative (Negative) U Tricyclic Antidepress Negative (Negative) Ur Phencyclidine Scrn Negative (Negative) Ur Amphetamines Screen Negative (Negative) U Methamphetamines Scrn Negative (Negative) Ur MDMA Scrn (Ecstasy) Negative (Negative) U Benzodiazepines Scrn Negative (Negative) [place] 0.2 L (0.6-1.2) mmol/L Urine Cocaine Screen Negative (Negative) U Marijuana (THC) Screen Negative (Negative) Urine pH Normal (Normal) Urine Specific [place] Normal (Normal) Ethyl Alcohol 320 H ( - 10) mg/dL Ur Creatinine Normal (Normal) Urine Dip Bedside Urine Glucose Negative Bedside Urine Bilirubin - Negative Bedside Urine Ketone - Negative Urine Specific [place] 1.015 Bedside Urine Occult Blood +/- Bedside Urine pH 5.5 Bedside Urine Protein +/- 15 Bedside Urine Urobilinogen - Negative Bedside Urine Nitrite - Negative Bedside Urine Leukocytes - Negative Esterase MDM Narrative Medical decision making narrative: Patient is a 39-year-old male history of bipolar depression alcoholism presenting today with suicidal ideations. He has no specific plan to hurt herself. Here because his told him he needs to come to the emergency department. We discussed going to a dual placement detox and mental health facility which he was agreeable to. Blood work has been reviewed Alcohol level is 320, Toxicology negative No leukocytosis Electrolytes within normal limits Creatinine 1.4 which is baseline Bilirubin 0.6 AST 63 ALT 62 alk-phos 81 Patient given 2 mg of Ativan which does seem to help calm him down. Patient initially voluntary wants to go to detox however decided now he will not need inpatient long-term residential detox. He was done that before. He has a place he can call. No longer suicidal contracts for safety. [id number] coming to pick him up. He has a steady gait. At this time does not meet involuntary criteria. Caught vaping in the room, was discharged for his ride got here. Discharge Plan Departure Patient Disposition: Home Clinical Impression: Alcohol intoxication, Suicidal ideations, Depression Instructions: DI for Alcohol Use Disorder Activity Restrictions/Additional Instructions: *You have been diagnosed with alcohol intoxication, depression suicidal ideation *What to do: At this time agree that you need detox center also to help with mental health. If you are feeling suicidal or having suicidal thoughts: Call: Suicide Hotline: 679 Visit: www.[employer].org Text: 115134 *Continue to take medications as directed *Follow up with your primary care provider in 2-3 days or call [phone] *Return to ER if you should have increasing thoughts of self-harm shaking tremors hallucinations or any new, worsening or concerning symptoms Prescriptions: No Action lamotrigine 100 mg tablet 100 mg PO DAILY lithium carbonate 600 mg capsule 600 mg PO BEDTIME naltrexone 50 mg tablet 50 mg PO DAILY propranolol 20 mg tablet 20 mg PO BID ezetimibe 10 mg tablet 10 mg PO DAILY Qty: 30 3RF quetiapine 300 mg tablet 300 mg PO DAILY Referrals: Bailey Wagner DO [Primary Care Provider] - Stand Alone Forms: Patient Portal/API/Survey
[2024-10-19] MEDS: LORazepam 0.5 MG TABLET 2 MG PO (00:14)
[2024-10-19 00:19] LABS: Lithium 0.2 mmol/L (0.6-1.2)
[2024-10-19 00:28] LABS: TSH w/ Reflex to FT4 2.41 uIU/mL (0.47-4.68)
--- NOTE | 2024-10-19 01:18 | PC.NURSE ---
I started calling facilities to find placement for this pt's dual-diagnoses, [facility] need [employer]PRENTICE consult. i called [facility], [facility], [facility] and no one has beds.
[2024-10-19 01:24] VITALS: BP 134/95; PULSE 89; O2SAT 98
== END 2024-10-19 01:35 | disposition home or self-care (01) ==
PROVIDERS: Emergency Provider Emergency Medicine; Family Provider Family Medicine; PCP Family Medicine
DX: F10.129 Alcohol abuse with intoxication, unspecified (principal); Y90.8 Blood alcohol level of 240 mg/100 ml or more; R45.851 Suicidal ideations; F32.A Depression, unspecified
CPT/HCPCS: 36415; 80053; 80178; 80305; 80320; 80329; 81003; 84443; 85025; 99284; G0480

== ENCOUNTER 2024-10-22 00:56 | Emergency (ER) | payer OTHER, SELFPAY | END 2024-10-22 01:04 | disposition left against medical advice (07) | LOC: ED 01:02 | PROVIDERS: Family Provider Family Medicine; PCP Family Medicine | DX: Z53.21 Procedure and treatment not carried out due to patient leaving prior to being seen by health care provider (principal) ==

== ENCOUNTER 2024-10-22 01:26 | Emergency (ER) | payer OTHER, SELFPAY ==
[2024-10-22] VITALS (10 sets, daily range): BP systolic 119–152; BP diastolic 66–89; PULSE 75–89; RESP 16–20; TEMP 36.6–36.8; O2SAT 94–99; BMI 34.2
--- NOTE | 2024-10-22 01:33 | EKG_ITS ---
[address] [address] Test Date: 2024-10-22 Pat Name: Vishnu Adorno Department: [facility] Room: Gender: Male Verify Rep: KAVON : 1985 Requested By: Order Number: [id number] Reading MD: Puma Bañuelos MD Measurements Intervals [place] Rate: 84 P: 50 SD: 168 QRS: 39 QRSD: 110 T: 66 QT: 354 QTc: 418 Interpretive Statements Normal sinus rhythm Electronically Signed On 10-22-2024 8:25:27 PDT by Puma Bañuelos MD
--- NOTE | 2024-10-22 01:44 | DI.RAD.S_ITS ---
PROCEDURE: XR CHEST 1V INDICATIONS: chest pain TECHNIQUE: One view of the chest was acquired. COMPARISON: None. FINDINGS: Surgical changes and devices: None. Lungs and pleura: Lungs are clear. No pleural effusions or pneumothorax. Mediastinum: Mediastinal contours appear normal. Heart size is normal. Bones and chest wall: No suspicious bony lesions. Overlying soft tissues appear unremarkable. IMPRESSION: No acute cardiopulmonary abnormality is seen. Dictated by: Checo Pierson M.D. on 10/22/2024 at 1:58 Approved by: Checo Pierson M.D. on 10/22/2024 at 1:59
[2024-10-22] MEDS: NICOTINE 21 MG PATCH TOP (01:51)
[2024-10-22 02:11] LABS: Add Manual Diff / Slide Review NO; Basophils Absolute Auto 0 /uL (0-100); Basophils Percent Auto 0.6 % (0-2); Eosinophils Absolute Auto 0 /uL (0-450); Eosinophils Percent Auto 0.3 % (2-4); Hematocrit 48.5 % (41-53); Hemoglobin 17.2 g/dL (13.5-17.5); Lymphocytes Absolute Auto 2700 /uL (1100-4500); Lymphocytes Percent Auto 39.7 % (25-40); Mean Corpuscular HGB Conc 35.5 % (30-36); Mean Corpuscular Hemoglobin 32.4 PG (26-34); Mean Corpuscular Volume 91.3 fL (80-100); Monocytes Absolute Auto 500 /uL (0-900); Monocytes Percent Auto 7.2 % (3-14); Neutrophils Absolute Auto 3500 /uL (1500-7000); Neutrophils Percent Auto 52.2 % (50-75); Platelet Count 258 X10^3/uL (150-400); Red Blood Cell Count 5.31 X10^6/uL (4.5-5.9); Red Cell Distribution Width 14.9 % (11.6-14.8); White Blood Cell Count 6.7 X10^3/uL (4.5-11.0)
[2024-10-22 02:15] LABS: INR 0.9 (0.9-1.3); Prothrombin Time 10.7 SECONDS (9.4-12.5)
[2024-10-22 02:18] LABS: PTT Partial Thromboplastin Tim 33 SECONDS (25.1-36.5)
[2024-10-22 02:19] LABS: Alanine Aminotransferase 65 IU/L (<50); Albumin 5.2 g/dL (3.5-5.0); Albumin Globulin Ratio 1.3 (1.0-2.8); Alkaline Phosphatase 50 U/L (38-126); Aspartate Aminotransferase 84 IU/L (17-59); BUN Creatinine Ratio 12.8 (6-22); Bilirubin Total 1.1 mg/dL (0.2-1.3); Blood Urea Nitrogen 14 mg/dL (9-20); Calcium 9.4 mg/dL (8.4-10.2); Carbon Dioxide 23 mmol/L (22-32); Chloride 105 mmol/L (98-107); Creatine Kinase 179 U/L (55-170); Estimated Glomerular Filt Rate > 60 mL/min (>60); Globulin 4.1 g/dL (1.7-4.1); Glucose 108 mg/dL (70-100); Lipase 158 U/L (23-300); Magnesium 2.1 mg/dL (1.6-2.3); Sodium 143 mmol/L (137-145); Total Protein 9.3 g/dL (6.3-8.2)
[2024-10-22 02:20] LABS: Acetaminophen < 10 ug/mL (10-30); HEMOLYSIS 182 (0-50); Potassium 5.5 mmol/L (3.4-5.1); Salicylate < 1.0 mg/dL (<20)
[2024-10-22 02:27] LABS: Ethanol (ETOH) 383 mg/dL
[2024-10-22 02:30] LABS: NT-proBNP (BNP-Adult 18+) < 20 pg/mL (<125)
--- NOTE | 2024-10-22 02:31 | ED_ITS ---
HPI - General Adult <Brenda Maria MD - Last Filed: 11/28/24 18:36> General Chief complaint: Toxicology Problem Stated complaint: needs detox Time Seen by Provider: 10/22/24 01:31 Source: patient Mode of arrival: Wheelchair History of Present Illness HPI narrative: 39-year-old gentleman with a long history of alcohol use disorder, chronic depression recently diagnosed his bipolar, describes multiple attempts to stop drinking. He clearly recognizes that he needs to. At this point he has lost his job and he has 3 children and a who depend on him. He is becoming more and more despondent. Apparently this evening his [id number] took him to [facility] rehab but his alcohol level was above 350 so they suggested that he come to the emergency department for further evaluation and slight sobering. Apparently he was dropped off at the emergency department. He is emotional, states that he wants to quit drinking but also wants to go home. Responded but no active suicide plan. Each time he states he wants to leave he he changes his mind and does choose to stay. Related Data Home Medications Medication Instructions Recorded Confirmed lithium carbonate 600 mg capsule 600 mg PO BEDTIME 05/26/24 10/22/24 naltrexone 50 mg tablet 50 mg PO DAILY 05/26/24 10/22/24 propranolol 20 mg tablet 20 mg PO BID 05/26/24 10/22/24 lamotrigine 100 mg tablet 100 mg PO DAILY 08/24/24 10/22/24 Previous Rx's Medication Instructions Recorded ezetimibe 10 mg tablet 10 mg PO DAILY #90 tabs 10/25/24 Allergies Allergy/AdvReac Type Severity Reaction Status Date / Time quetiapine AdvReac Severe groggy Verified 08/24/24 09:51 Review of Systems <Brenda Maria MD - Last Filed: 11/28/24 18:36> Review of Systems ROS Unobtainable: Unobtainable due to mental status/LOC Patient History <Brenda Maria MD - Last Filed: 11/28/24 18:36> Medical History (Updated 11/06/24 @ 00:01 by ) Flank pain, acute Low back pain BMI 36.0-36.9,adult Elevated liver enzymes (05/2019) Mixed hyperlipidemia (05/2019) Surgical History No pertinent past surgical history Family History Mother Depression Social History Smokeless tobacco user: chewing tobacco tobacco type: vaping and smokeless tobacco alcohol intake frequency: other Alcohol type: hard liquor Exam <Brenda Maria MD - Last Filed: 11/28/24 18:36> Initial Vital Signs Initial Vital Signs: Vital Signs Temperature 98.1 F 10/22/24 01:31 Pulse Rate 88 10/22/24 01:31 Respiratory Rate 20 10/22/24 01:31 Blood Pressure 152/89 H 10/22/24 01:31 Pulse Oximetry 96 10/22/24 01:31 Oxygen Delivery Method Room Air 10/22/24 01:31 General: Healthy appearing, despondent, acutely intoxicated Respiratory: Lungs are clear to auscultation, no wheezing no rales no rhonchi. Full and symmetrical air movement Cardiac: Tachycardic but otherwise Regular rate and rhythm no murmurs no bruits Abdomen: Soft, nontender, no rebound or guarding, no flank pain Skin: Well-perfused. Does not have spider angiomas, or jaundice Neurologic: Gait is unsteady, he is clinically intoxicated but moving all extremities Extremities: No trauma, well perfused Psych: Waxing and waning between belligerent and crying. Perseverating conversation <Bridgett Bui DO - Last Filed: 10/22/24 18:33> Initial Vital Signs Initial Vital Signs: Vital Signs Temperature 98.1 F 10/22/24 01:31 Pulse Rate 88 10/22/24 01:31 Respiratory Rate 20 10/22/24 01:31 Blood Pressure 152/89 H 10/22/24 01:31 Pulse Oximetry 96 10/22/24 01:31 Oxygen Delivery Method Room Air 10/22/24 01:31 Course <Brenda Maria MD - Last Filed: 11/28/24 18:36> Orders Ordered: Discontinued Medications Aspirin (Aspirin 81 Mg Chew Tab) 324 mg PO NOW ONE Stop: 10/22/24 01:45 Last Admin: 10/22/24 03:02 Dose: Not Given Documented By: KB Chlordiazepoxide HCl (Chlordiazepoxide 25 Mg Capsule) 50 mg PO NOW ONE Stop: 10/22/24 08:21 Last Admin: 10/22/24 08:32 Dose: 50 mg Documented By: SHIMON Folic Acid (Folic Acid 1 Mg Tablet) 1 mg PO DAILY [facility] Last Admin: 10/22/24 08:32 Dose: 1 mg Documented By: SHIMON Sodium Chloride (Normal Saline 0.9%) 1,000 mls @ 1,000 mls/hr IV BOLUS ONE Stop: 10/22/24 04:01 Last Infusion: 10/22/24 04:20 Dose: Infused Documented By: Admin: 10/22/24 03:45 Dose: 1,000 mls/hr Documented By: BETHANY Thiamine HCl 100 mg/ Sodium (Chloride) 101 mls @ 404 mls/hr IV NOW ONE Stop: 10/22/24 03:03 Last Infusion: 10/22/24 04:01 Dose: Infused Documented By: Admin: 10/22/24 03:44 Dose: 404 mls/hr Documented By: BETHANY Multivitamins (Multivitamin 1 Tablet) 1 tab PO DAILY [facility] Last Admin: 10/22/24 08:32 Dose: 1 tab Documented By: SHIMON Nicotine (Nicotine 21 Mg Patch) 21 mg TOP NOW ONE Stop: 10/22/24 01:48 Last Admin: 10/22/24 01:51 Dose: 21 mg Documented By: MACKENZIE Ondansetron HCl (Ondansetron 4 Mg/2 Ml Inj) 4 mg IV NOW ONE Stop: 10/22/24 03:03 Last Admin: 10/22/24 03:45 Dose: 4 mg Documented By: BETHANY Phenobarbital (Phenobarbital 65 Mg/Ml Vial) 130 mg IV NOW ONE Stop: 10/22/24 03:00 Last Admin: 10/22/24 03:43 Dose: 130 mg Documented By: BETHANY Phenobarbital (Phenobarbital 65 Mg/Ml Vial) 130 mg IV NOW ONE Stop: 10/22/24 05:33 Last Admin: 10/22/24 05:44 Dose: 130 mg Documented By: BETHANY Vital Signs Vital signs: Vital Signs - 8 hr 10/22/24 02:30 10/22/24 02:30 10/22/24 06:03 Temperature Pulse Rate 79 Respiratory Rate Blood Pressure 119/66 Blood Pressure [Left Arm] Pulse Oximetry 94 95 Oxygen Delivery Method Room Air 10/22/24 06:04 10/22/24 06:06 10/22/24 08:15 Temperature 98 F Pulse Rate 79 81 Respiratory Rate 18 Blood Pressure 126/70 126/70 Blood Pressure [Left Arm] Pulse Oximetry 96 95 Oxygen Delivery Method Room Air 10/22/24 08:16 10/22/24 08:16 10/22/24 08:16 Temperature Pulse Rate 75 75 Respiratory Rate 16 16 Blood Pressure 141/80 H Blood Pressure [Left Arm] 141/80 H Pulse Oximetry 99 99 Oxygen Delivery Method Room Air <Bridgett Bui, - Last Filed: 10/22/24 18:33> Orders Ordered: Discontinued Medications Aspirin (Aspirin 81 Mg Chew Tab) 324 mg PO NOW ONE Stop: 10/22/24 01:45 Last Admin: 10/22/24 03:02 Dose: Not Given Documented By: BETHANY Chlordiazepoxide HCl (Chlordiazepoxide 25 Mg Capsule) 50 mg PO NOW ONE Stop: 10/22/24 08:21 Last Admin: 10/22/24 08:32 Dose: 50 mg Documented By: SHIMON Folic Acid (Folic Acid 1 Mg Tablet) 1 mg PO DAILY [facility] Last Admin: 10/22/24 08:32 Dose: 1 mg Documented By: SHIMON Sodium Chloride (Normal Saline 0.9%) 1,000 mls @ 1,000 mls/hr IV BOLUS ONE Stop: 10/22/24 04:01 Last Infusion: 10/22/24 04:20 Dose: Infused Documented By: Admin: 10/22/24 03:45 Dose: 1,000 mls/hr Documented By: BETHANY Thiamine HCl 100 mg/ Sodium (Chloride) 101 mls @ 404 mls/hr IV NOW ONE Stop: 10/22/24 03:03 Last Infusion: 10/22/24 04:01 Dose: Infused Documented By: Admin: 10/22/24 03:44 Dose: 404 mls/hr Documented By: BETHANY Multivitamins (Multivitamin 1 Tablet) 1 tab PO DAILY [facility] Last Admin: 10/22/24 08:32 Dose: 1 tab Documented By: SHIMON Nicotine (Nicotine 21 Mg Patch) 21 mg TOP NOW ONE Stop: 10/22/24 01:48 Last Admin: 10/22/24 01:51 Dose: 21 mg Documented By: MACKENZIE Ondansetron HCl (Ondansetron 4 Mg/2 Ml Inj) 4 mg IV NOW ONE Stop: 10/22/24 03:03 Last Admin: 10/22/24 03:45 Dose: 4 mg Documented By: BETHANY Phenobarbital (Phenobarbital 65 Mg/Ml Vial) 130 mg IV NOW ONE Stop: 10/22/24 03:00 Last Admin: 10/22/24 03:43 Dose: 130 mg Documented By: BETHANY Phenobarbital (Phenobarbital 65 Mg/Ml Vial) 130 mg IV NOW ONE Stop: 10/22/24 05:33 Last Admin: 10/22/24 05:44 Dose: 130 mg Documented By: BETHANY Vital Signs Vital signs: Vital Signs - 8 hr 10/22/24 02:30 10/22/24 02:30 10/22/24 06:03 Temperature Pulse Rate 79 Respiratory Rate Blood Pressure 119/66 Blood Pressure [Left Arm] Pulse Oximetry 94 95 Oxygen Delivery Method Room Air 10/22/24 06:04 10/22/24 06:06 10/22/24 08:15 Temperature 98 F Pulse Rate 79 81 Respiratory Rate 18 Blood Pressure 126/70 126/70 Blood Pressure [Left Arm] Pulse Oximetry 96 95 Oxygen Delivery Method Room Air 10/22/24 08:16 10/22/24 08:16 10/22/24 08:16 Temperature Pulse Rate 75 75 Respiratory Rate 16 16 Blood Pressure 141/80 H Blood Pressure [Left Arm] 141/80 H Pulse Oximetry 99 99 Oxygen Delivery Method Room Air Medical Decision Making <Brenda Maria MD - Last Filed: 11/28/24 18:36> Lab Data 10/22/24 01:50 10/22/24 04:25 Labs: Lab Results 10/22/24 10/22/24 10/22/24 Range/Units 01:50 01:55 03:30 WBC 6.7 (4.5-11.0) X10^3/uL RBC 5.31 (4.5-5.9) X10^6/uL Hgb 17.2 (13.5-17.5) g/dL Hct 48.5 (41-53) % MCV 91.3 (80-100) fL MCH 32.4 (26-34) PG MCHC 35.5 (30-36) % RDW 14.9 H (11.6-14.8) % Plt Count 258 (150-400) X10^3/uL Neut % (Auto) 52.2 (50-75) % Lymph % (Auto) 39.7 (25-40) % [place] % (Auto) 7.2 (3-14) % Eos % (Auto) 0.3 L (2-4) % Baso % (Auto) 0.6 (0-2) % Neut # (Auto) 3500 (7913-1255) /uL Lymph # (Auto) 2700 (5866-4609) /uL [place] # (Auto) 500 (0-900) /uL Eos # (Auto) 0 (0-450) /uL Baso # (Auto) 0 (0-100) /uL PT 10.7 (9.4-12.5) SECONDS INR 0.9 (0.9-1.3) APTT 33 (25.1-36.5) SECONDS Sodium 143 (137-145) mmol/L Potassium 5.5 H D (3.4-5.1) mmol/L Chloride 105 (98-107) mmol/L Carbon Dioxide 23 (22-32) mmol/L BUN 14 (9-20) mg/dL Creatinine 1.09 (0.66-1.25) mg/dL Estimated GFR > 60 (>60) mL/min BUN/Creatinine Ratio 12.8 (6-22) Glucose 108 H (70-100) mg/dL Calcium 9.4 (8.4-10.2) mg/dL Magnesium 2.1 (1.6-2.3) mg/dL Total Bilirubin 1.1 (0.2-1.3) mg/dL AST 84 H (17-59) IU/L ALT 65 H (<50) IU/L Alkaline Phosphatase 50 (38-126) U/L Total Creatine Kinase 179 H (55-170) U/L Troponin I 0.035 H (0.01-0.034) ng/mL NT-Pro-B Natriuret Pep < 20 (<125) pg/mL Total Protein 9.3 H (6.3-8.2) g/dL Albumin 5.2 H (3.5-5.0) g/dL Globulin 4.1 (1.7-4.1) g/dL Albumin/Globulin Ratio 1.3 (1.0-2.8) Lipase 158 (23-300) U/L TSH 1.83 (0.47-4.68) uIU/mL Free T4 0.90 (0.78-2.19) ng/dL Salicylates < 1.0 (<20) mg/dL U Opiates 300ng/mL cut (Negative) Ur Oxycodone Screen (Negative) Urine Methadone Screen (Negative) Acetaminophen < 10 (10-30) ug/mL Ur Barbiturates Screen (Negative) Lamotrigine <1.0 L (2.0-20.0) ug/mL U Tricyclic Antidepress (Negative) Ur Phencyclidine Scrn (Negative) Ur Amphetamines Screen (Negative) U Methamphetamines Scrn (Negative) Ur MDMA Scrn (Ecstasy) (Negative) U Benzodiazepines Scrn (Negative) [place] < 0.2 L (0.6-1.2) mmol/L Urine Cocaine Screen (Negative) U Marijuana (THC) Screen (Negative) Urine pH Urine Specific [place] Ethyl Alcohol 383 H ( - 10) mg/dL Ur Creatinine 10/22/24 04/ Range/Units 04:20 04:25 WBC (4.5-11.0) X10^3/uL RBC (4.5-5.9) X10^6/uL Hgb (13.5-17.5) g/dL Hct (41-53) % MCV (80-100) fL MCH (26-34) PG MCHC (30-36) % RDW (11.6-14.8) % Plt Count (150-400) X10^3/uL Neut % (Auto) (50-75) % Lymph % (Auto) (25-40) % [place] % (Auto) (3-14) % Eos % (Auto) (2-4) % Baso % (Auto) (0-2) % Neut # (Auto) (4842-8985) /uL Lymph # (Auto) (8361-5483) /uL [place] # (Auto) (0-900) /uL Eos # (Auto) (0-450) /uL Baso # (Auto) (0-100) /uL PT (9.4-12.5) SECONDS INR (0.9-1.3) APTT (25.1-36.5) SECONDS Sodium 144 (137-145) mmol/L Potassium 3.8 D (3.4-5.1) mmol/L Chloride 104 (98-107) mmol/L Carbon Dioxide 28 (22-32) mmol/L BUN 14 (9-20) mg/dL Creatinine 1.15 (0.66-1.25) mg/dL Estimated GFR > 60 (>60) mL/min BUN/Creatinine Ratio 12.2 (6-22) Glucose 115 H (70-100) mg/dL Calcium 8.8 (8.4-10.2) mg/dL Magnesium (1.6-2.3) mg/dL Total Bilirubin (0.2-1.3) mg/dL AST (17-59) IU/L ALT (<50) IU/L Alkaline Phosphatase (38-126) U/L Total Creatine Kinase (55-170) U/L Troponin I < 0.012 (0.01-0.034) ng/mL NT-Pro-B Natriuret Pep (<125) pg/mL Total Protein (6.3-8.2) g/dL Albumin (3.5-5.0) g/dL Globulin (1.7-4.1) g/dL Albumin/Globulin Ratio (1.0-2.8) Lipase (23-300) U/L TSH (0.47-4.68) uIU/mL Free T4 (0.78-2.19) ng/dL Salicylates (<20) mg/dL U Opiates 300ng/mL cut Negative (Negative) Ur Oxycodone Screen Negative (Negative) Urine Methadone Screen Negative (Negative) Acetaminophen (10-30) ug/mL Ur Barbiturates Screen Negative (Negative) Lamotrigine (2.0-20.0) ug/mL U Tricyclic Antidepress Negative (Negative) Ur Phencyclidine Scrn Negative (Negative) Ur Amphetamines Screen Negative (Negative) U Methamphetamines Scrn Negative (Negative) Ur MDMA Scrn (Ecstasy) Negative (Negative) U Benzodiazepines Scrn Negative (Negative) [place] (0.6-1.2) mmol/L Urine Cocaine Screen Negative (Negative) U Marijuana (THC) Screen Negative (Negative) Urine pH TNP Urine Specific [place] TNP Ethyl Alcohol 338 H ( - 10) mg/dL Ur Creatinine TNP Urine Dip Bedside Urine Glucose Negative Bedside Urine Bilirubin - Negative Bedside Urine Ketone - Negative Urine Specific [place] 1.030 Bedside Urine Occult Blood + Bedside Urine pH 5.5 Bedside Urine Protein + 30 Bedside Urine Urobilinogen - Negative Bedside Urine Nitrite - Negative Bedside Urine Leukocytes - Negative Esterase Point of care testing: Urine Dip Bedside Urine Glucose Negative Bedside Urine Bilirubin - Negative Bedside Urine Ketone - Negative Urine Specific [place] 1.030 Bedside Urine Occult Blood + Bedside Urine pH 5.5 Bedside Urine Protein + 30 Bedside Urine Urobilinogen - Negative Bedside Urine Nitrite - Negative Bedside Urine Leukocytes - Negative Esterase MDM Narrative Medical decision making narrative: CC: Alcohol use disorder requesting help with detox, acute intoxication Complicating co-morbidities: Bipolar disorder, multiple psychosocial stressors Data collected from: patient Medical records reviewed: Patient was in the emergency department on October 19 for similar complaints. When we called [facility] to have him do a phone evaluation they told us that he has been there earlier in the evening and needed to have an alcohol level of below 350 and at that point they would be happy to consider helping him Differential considered: Acute alcohol intoxication, alcohol use disorder, depression, suicidal ideation Exam documented above, pertinent findings include: Intoxicated, slurred speech, grandiose ideas with perseverating conversation with no obvious physical abnormalities, slightly tachycardic lungs are clear belly is soft Lab Test results independently reviewed as above. Pertinent findings: CBC is unremarkable with no anemia or thrombocytopenia Chemistries show potassium elevated at 5.5, creatinine is appropriate. Liver enzymes are increased from the 16th with AST at 84 ALT at 65 normal bili. Troponin is slightly elevated at 0.035 (normal is 0.034 or lower) [place] level is undetectable TSH is unremarkable Lipase is appropriate Urine dip does not suggest urinary tract infection Repeat potassium is appropriate at 3.8 Repeat troponin is down and well within the normal range Repeat alcohol level is down to 338 Independently reviewed EKG: EKG shows sinus rhythm at a rate of 84 without T-wave changes to suggest clinical hyperkalemia Imaging studies independently reviewed: Chest x-ray is unremarkable Treatments: Fluid, IV thiamine, 130 mg of phenobarbital as he complains of severe anxiety and continues to pace about the room. Discussion: 39-year-old gentleman with alcohol use disorder recently lost his job, has had returned to fairly heavy drinking. Continues to state that he wants help but then continues to leave resources and drinking. Recently diagnosed with bipolar disorder does not appear that he is taking his lithium and he certainly does seem significantly depressed. In the emergency department initial alcohol level at 383. Patient slightly less agitated after the phenobarbital, alcohol level is now below 350 we will contact [facility] to see if they we screen him for acceptance. <Bridgett Bui, DO - Last Filed: 10/22/24 18:33> Lab Data Labs: Lab Results 10/22/24 10/22/24 10/22/24 Range/Units 01:50 01:55 03:30 WBC 6.7 (4.5-11.0) X10^3/uL RBC 5.31 (4.5-5.9) X10^6/uL Hgb 17.2 (13.5-17.5) g/dL Hct 48.5 (41-53) % MCV 91.3 (80-100) fL MCH 32.4 (26-34) PG MCHC 35.5 (30-36) % RDW 14.9 H (11.6-14.8) % Plt Count 258 (150-400) X10^3/uL Neut % (Auto) 52.2 (50-75) % Lymph % (Auto) 39.7 (25-40) % [place] % (Auto) 7.2 (3-14) % Eos % (Auto) 0.3 L (2-4) % Baso % (Auto) 0.6 (0-2) % Neut # (Auto) 3500 (2900-7836) /uL Lymph # (Auto) 2700 (0397-9831) /uL [place] # (Auto) 500 (0-900) /uL Eos # (Auto) 0 (0-450) /uL Baso # (Auto) 0 (0-100) /uL PT 10.7 (9.4-12.5) SECONDS INR 0.9 (0.9-1.3) APTT 33 (25.1-36.5) SECONDS Sodium 143 (137-145) mmol/L Potassium 5.5 H D (3.4-5.1) mmol/L Chloride 105 (98-107) mmol/L Carbon Dioxide 23 (22-32) mmol/L BUN 14 (9-20) mg/dL Creatinine 1.09 (0.66-1.25) mg/dL Estimated GFR > 60 (>60) mL/min BUN/Creatinine Ratio 12.8 (6-22) Glucose 108 H (70-100) mg/dL Calcium 9.4 (8.4-10.2) mg/dL Magnesium 2.1 (1.6-2.3) mg/dL Total Bilirubin 1.1 (0.2-1.3) mg/dL AST 84 H (17-59) IU/L ALT 65 H (<50) IU/L Alkaline Phosphatase 50 (38-126) U/L Total Creatine Kinase 179 H (55-170) U/L Troponin I 0.035 H (0.01-0.034) ng/mL NT-Pro-B Natriuret Pep < 20 (<125) pg/mL Total Protein 9.3 H (6.3-8.2) g/dL Albumin 5.2 H (3.5-5.0) g/dL Globulin 4.1 (1.7-4.1) g/dL Albumin/Globulin Ratio 1.3 (1.0-2.8) Lipase 158 (23-300) U/L TSH 1.83 (0.47-4.68) uIU/mL Free T4 0.90 (0.78-2.19) ng/dL Salicylates < 1.0 (<20) mg/dL U Opiates 300ng/mL cut (Negative) Ur Oxycodone Screen (Negative) Urine Methadone Screen (Negative) Acetaminophen < 10 (10-30) ug/mL Ur Barbiturates Screen (Negative) Lamotrigine <1.0 L (2.0-20.0) ug/mL U Tricyclic Antidepress (Negative) Ur Phencyclidine Scrn (Negative) Ur Amphetamines Screen (Negative) U Methamphetamines Scrn (Negative) Ur MDMA Scrn (Ecstasy) (Negative) U Benzodiazepines Scrn (Negative) [place] < 0.2 L (0.6-1.2) mmol/L Urine Cocaine Screen (Negative) U Marijuana (THC) Screen (Negative) Urine pH Urine Specific [place] Ethyl Alcohol 383 H ( - 10) mg/dL Ur Creatinine 10/22/24 10/22/24 Range/Units 04:20 04:25 WBC (4.5-11.0) X10^3/uL RBC (4.5-5.9) X10^6/uL Hgb (13.5-17.5) g/dL Hct (41-53) % MCV (80-100) fL MCH (26-34) PG MCHC (30-36) % RDW (11.6-14.8) % Plt Count (150-400) X10^3/uL Neut % (Auto) (50-75) % Lymph % (Auto) (25-40) % [place] % (Auto) (3-14) % Eos % (Auto) (2-4) % Baso % (Auto) (0-2) % Neut # (Auto) (1900-8917) /uL Lymph # (Auto) (9701-3604) /uL [place] # (Auto) (0-900) /uL Eos # (Auto) (0-450) /uL Baso # (Auto) (0-100) /uL PT (9.4-12.5) SECONDS INR (0.9-1.3) APTT (25.1-36.5) SECONDS Sodium 144 (137-145) mmol/L Potassium 3.8 D (3.4-5.1) mmol/L Chloride 104 (98-107) mmol/L Carbon Dioxide 28 (22-32) mmol/L BUN 14 (9-20) mg/dL Creatinine 1.15 (0.66-1.25) mg/dL Estimated GFR > 60 (>60) mL/min BUN/Creatinine Ratio 12.2 (6-22) Glucose 115 H (70-100) mg/dL Calcium 8.8 (8.4-10.2) mg/dL Magnesium (1.6-2.3) mg/dL Total Bilirubin (0.2-1.3) mg/dL AST (17-59) IU/L ALT (<50) IU/L Alkaline Phosphatase (38-126) U/L Total Creatine Kinase (55-170) U/L Troponin I < 0.012 (0.01-0.034) ng/mL NT-Pro-B Natriuret Pep (<125) pg/mL Total Protein (6.3-8.2) g/dL Albumin (3.5-5.0) g/dL Globulin (1.7-4.1) g/dL Albumin/Globulin Ratio (1.0-2.8) Lipase (23-300) U/L TSH (0.47-4.68) uIU/mL Free T4 (0.78-2.19) ng/dL Salicylates (<20) mg/dL U Opiates 300ng/mL cut Negative (Negative) Ur Oxycodone Screen Negative (Negative) Urine Methadone Screen Negative (Negative) Acetaminophen (10-30) ug/mL Ur Barbiturates Screen Negative (Negative) Lamotrigine (2.0-20.0) ug/mL U Tricyclic Antidepress Negative (Negative) Ur Phencyclidine Scrn Negative (Negative) Ur Amphetamines Screen Negative (Negative) U Methamphetamines Scrn Negative (Negative) Ur MDMA Scrn (Ecstasy) Negative (Negative) U Benzodiazepines Scrn Negative (Negative) [place] (0.6-1.2) mmol/L Urine Cocaine Screen Negative (Negative) U Marijuana (THC) Screen Negative (Negative) Urine pH TNP Urine Specific [place] TNP Ethyl Alcohol 338 H ( - 10) mg/dL Ur Creatinine TNP Urine Dip Bedside Urine Glucose Negative Bedside Urine Bilirubin - Negative Bedside Urine Ketone - Negative Urine Specific [place] 1.030 Bedside Urine Occult Blood + Bedside Urine pH 5.5 Bedside Urine Protein + 30 Bedside Urine Urobilinogen - Negative Bedside Urine Nitrite - Negative Bedside Urine Leukocytes - Negative Esterase Point of care testing: Urine Dip Bedside Urine Glucose Negative Bedside Urine Bilirubin - Negative Bedside Urine Ketone - Negative Urine Specific [place] 1.030 Bedside Urine Occult Blood + Bedside Urine pH 5.5 Bedside Urine Protein + 30 Bedside Urine Urobilinogen - Negative Bedside Urine Nitrite - Negative Bedside Urine Leukocytes - Negative Esterase [facility] Narrative Medical decision making narrative: CC: Alcohol use disorder requesting help with detox, acute intoxication Complicating co-morbidities: Bipolar disorder, multiple psychosocial stressors Data collected from: patient Medical records reviewed: Patient was in the emergency department on October 19 for similar complaints. When we called [facility] to have him do a phone evaluation they told us that he has been there earlier in the evening and needed to have an alcohol level of below 350 and at that point they would be happy to consider helping him Differential considered: Acute alcohol intoxication, alcohol use disorder, depression, suicidal ideation Exam documented above, pertinent findings include: Intoxicated, slurred speech, grandiose ideas with perseverating conversation with no obvious physical abnormalities, slightly tachycardic lungs are clear belly is soft Lab Test results independently reviewed as above. Pertinent findings: CBC is unremarkable with no anemia or thrombocytopenia Chemistries show potassium elevated at 5.5, creatinine is appropriate. Liver enzymes are increased from the 16th with AST at 84 ALT at 65 normal bili. Troponin is slightly elevated at 0.035 (normal is 0.034 or lower) [place] level is undetectable TSH is unremarkable Lipase is appropriate Urine dip does not suggest urinary tract infection Repeat potassium is appropriate at 3.8 Repeat troponin is down and well within the normal range Repeat alcohol level is down to 338 Independently reviewed EKG: EKG shows sinus rhythm at a rate of 84 without T-wave changes to suggest clinical hyperkalemia Imaging studies independently reviewed: Chest x-ray is unremarkable Treatments: Fluid, IV thiamine, 130 mg of phenobarbital as he complains of severe anxiety and continues to pace about the room. Discussion: 39-year-old gentleman with alcohol use disorder recently lost his job, has had returned to fairly heavy drinking. Continues to state that he wants help but then continues to leave resources and drinking. Recently diagnosed with bipolar disorder does not appear that he is taking his lithium and he certainly does seem significantly depressed. In the emergency department initial alcohol level at 383. Patient slightly less agitated after the phenobarbital, alcohol level is now below 350 we will contact [facility] to see if they we screen him for acceptance. 10/22/24 Dr. Bui 0715: Patient signed out to myself by Dr. Maria. Patient has been medically cleared had slightly elevated potassium and indeterminate troponin both have normalized on repeat labs. UDS is negative, initial alcohol was 383 repeat at 4:25 a.m. this morning was 338. [place] level was less than 0.2, Tylenol, salicylate were negative. Chest x-ray showed no acute change. EKG shows sinus rhythm. Waiting till after 8:00 a.m. to reach out to [facility], patient was express interest in going there they can review his chart after that time. Does have a lamictal level pending but this is a send out lab. Patient has received phenobarb x2, thiamine, Zofran, 1 L bolus normal saline and a nicotine patch. Recheck at 0821 patient was awake and eating breakfast. Still has a little bit of tremor but denies any other symptoms. Patient states he was seeking inpatient stay. States he does not have any thoughts of harming himself or others states that is something he was on tends to say when he was intoxicated. He was still seeking inpatient placement for detox. Discussed no available at [facility], will try other faclities. Patient is agreeable. We will give patient a dose of oral medication for his symptoms. Patients family called back, they have secured a bed at [facility]. Bed is available at 1:00 p.m.. He has a family member en route to pick him up and take him there. Patient is agreeable. Discharge Plan Departure Patient Disposition: Home Clinical Impression: Alcohol use disorder, Acute alcohol intoxication, Bipolar disorder, Acute reaction to situational stress Activity Restrictions/Additional Instructions: Please go directly to the detox facility. Prescriptions: No Action ezetimibe 10 mg tablet 10 mg PO DAILY Qty: 90 1RF lamotrigine 100 mg tablet 100 mg PO DAILY lithium carbonate 600 mg capsule 600 mg PO BEDTIME naltrexone 50 mg tablet 50 mg PO DAILY propranolol 20 mg tablet 20 mg PO BID Referrals: Bailey Wagner DO [Primary Care Provider] - Stand Alone Forms: Patient Portal/API/Survey
[2024-10-22 02:42] LABS: Troponin I 0.035 ng/mL (0.01-0.034)
[2024-10-22 02:50] LABS: Thyroid Stimulating Hormone 1.83 uIU/mL (0.47-4.68)
[2024-10-22] MEDS: PHENobarbital 65 MG/ML VIAL 130 MG IV ×2 (03:43→05:44)
[2024-10-22] MEDS: THIAMINE 100 MG in SODIUM CHLORIDE 0.9% 100 ML 404 MG IV (03:44)
[2024-10-22] MEDS: ONDANSETRON 4 MG/2 ML INJ IV (03:45)
[2024-10-22] MEDS: SODIUM CHLORIDE 0.9% 1,000 ML 1000 ML IV (03:45)
[2024-10-22 04:06] LABS: Lithium < 0.2 mmol/L (0.6-1.2)
[2024-10-22 04:52] LABS: BUN Creatinine Ratio 12.2 (6-22); Blood Urea Nitrogen 14 mg/dL (9-20); Calcium 8.8 mg/dL (8.4-10.2); Carbon Dioxide 28 mmol/L (22-32); Chloride 104 mmol/L (98-107); Estimated Glomerular Filt Rate > 60 mL/min (>60); Glucose 115 mg/dL (70-100); HEMOLYSIS < 15 (0-50); Potassium 3.8 mmol/L (3.4-5.1); Sodium 144 mmol/L (137-145)
[2024-10-22 04:53] LABS: UR Morphine/Opiate cutoff 300 Negative (Negative); Urine Amphetamines Negative (Negative); Urine Barbiturates Negative (Negative); Urine Benzodiazepines Negative (Negative); Urine Cocaine Negative (Negative); Urine MDMA Negative (Negative); Urine Methadone Negative (Negative); Urine Methamphetamines Negative (Negative); Urine Oxycodone Negative (Negative); Urine Phencyclidine Negative (Negative); Urine Tetrahydrocannabinol Negative (Negative); Urine Tricyclic Antidepressant Negative (Negative)
[2024-10-22 04:59] LABS: Ethanol (ETOH) 338 mg/dL
[2024-10-22 05:04] LABS: Troponin I < 0.012 ng/mL (0.01-0.034)
--- NOTE | 2024-10-22 05:21 | PC.NURSE ---
Clinicals and Provider note faxed to [facility] for detox consideration. Patient was at [facility] 09/20/24 prior to arrival to ER taken by mother in law, staff indicated that at that time he completed a phone screening and can be considered for an intake call once he has a lower alcohol level, would need clinicals and notes faxed for medical review.
--- NOTE | 2024-10-22 06:24 | PC.NURSE ---
This is the first time since pt arrival that he has actually slept. Will allow pt to sleep until It[facility] lets us know about admission.
--- NOTE | 2024-10-22 08:20 | PC.NURSE ---
Woke pt from sleep for vital signs and offered pt breakfast. Pt agreed and is sitting up in bed eating breakfast. Pt has no complaints at this time. No thoughts of self harm, calm, cooperative.
[2024-10-22] MEDS: MULTIVITAMIN 1 TABLET 1 TAB PO (08:32)
[2024-10-22] MEDS: chlordiazePOXIDE 25 MG CAPSULE 50 MG PO (08:32)
[2024-10-22] MEDS: FOLIC ACID 1 MG TABLET PO (08:32)
--- NOTE | 2024-10-22 10:07 | PC.NURSE ---
On [facility] schedule for 1300. Dr Bui made aware. will drive to [facility] today.
--- NOTE | 2024-10-22 11:39 | CM.SWNOTE ---
ED TECHNICAL SUPPORT DIRECTOR Note: Reviewed EMR and team rounds for pt?s medical status. Per RN, referral sent to [facility] and pt already placed on [facility]'s schedule for 1300. No needs from SW identified at this time. Plan: Anticipating transport to [facility] at 1300 via . ED TECHNICAL SUPPORT DIRECTOR will continue to follow for coordination of discharge plans. Caity Arreola, GHASSAN
[2024-10-25 12:08] LABS: Lamotrigine Lamictal <1.0 ug/mL (2.0-20.0)
== END 2024-10-22 11:51 | disposition home or self-care (01) ==
PROVIDERS: Emergency Medicine; Emergency Provider Emergency Medicine; Family Provider Family Medicine; PCP Family Medicine
DX: F10.920 Alcohol use, unspecified with intoxication, uncomplicated (principal); F31.9 Bipolar disorder, unspecified; R07.9 Chest pain, unspecified; F43.0 Acute stress reaction; Y90.8 Blood alcohol level of 240 mg/100 ml or more
CPT/HCPCS: 36415; 71045; 80048; 80053; 80175; 80178; 80305; 80320; 80329; 81003; 82550; 83690; 83735; 83880; 84439; 84443; 84484; 85025; 85610; 85730; 93005; 96365; 96375; 96376; 99284; G0480; J2405; J2560